=== PATIENT | male | born 1945 | race Caucasian/White ===

== ENCOUNTER 2022-11-09 10:12 | Outpatient (CLI) | payer MEDICARE, OTHER ==
[2022-11-09 11:15] VITALS: BP 110/76
--- NOTE | 2022-11-09 11:15 | SLEEP CARE CONSULTATION ---
Information from patient questionnaire entered by Brooke Amanda. I have reviewed and concur with the information entered by Brooke Amanda. This document represents the service I personally performed and the decisions made by me, Livia Warner ARNP. History of Present Illness Service Date and Time: 11/09/2022 1012 Reason for Visit: New patient, sleep apnea on CPAP therapy Chief Complaint: reports: Other (UPDATE SITUATION ) Date of Onset: 14 years Usual bedtime: 10PM Time it takes to fall asleep: VARIES Snores at night: No Observed to quit breathing while asleep: Yes Sleeps alone due to snoring: No Number of times waking at night: 1 Reasons for waking at night: reports: Bathroom Toss, Turn, or Twitch while sleeping: Yes Recalls having dreams: Yes Usually gets out of bed at: 5 AM Feels refreshed in the morning: No Morning headache: No Sleepy or fatigued during the day: Yes Ever fallen asleep while driving: No Takes day naps: No Prior sleep studies: Yes Year and Where: [place] 2018 Additional HPI information: CESARIO DELVALLE was previously diagnosed to have severe, AHI 34.4, obstructive sleep apnea-hypopnea syndrome with sleep study dated 05/05/2019 through [facility] in [place] and comes in today to establish care for CPAP therapy. - Parasomnia Symptoms Ever been unable to move upon waking from sleep: No Walks in sleep: No Talks in sleep: No Ever acted out dreams in sleep: No Ever felt weak in the knees when startled or emotional: No Bothered by creepy, crawly, restless sensations in legs: No Problems with memory or concentration: No CPAP Compliance Data - Data Reviewed with Patient Average duration of nightly device use: 8 hours 29 minutes Compliance rate %: 100 (30/30 days used) Current pressure setting (cmH2O): 12-16 Average residual AHI: 5.2 (5.1 with 90 day review) Central apnea: 1.7 Obstructive apnea: 1.2 Hypopnea: 2.1 Compliance data discussion: Patient has a Resmed Airsense 10 s/u 05/2019. He has gotten his supplies from [employer] in [place]. He is using a nasal cushion mask that goes over his nose, Resmed Mirage FX. He does have a back up mask. Subjective Patient concerns: reports: dry mouth, nose, throat (dry mouth). denies: aerophagia, mask discomfort, air blowing in eyes, mask leak noise, condensation in mask/hose, nasal congestion, epistaxis Observed to snore while using device: No Current pressure setting perceived as: comfortable On therapy, patient: reports: sleeping better, awakening more refreshed, being more awake and alert during the day, more rested overall. denies: drowsiness while driving Initial [place] Sleepiness Scale score: 3 (10/10/22) Past Medical History Past Medical History: reports: Arthritis, Impotence, Depression, Other (knee and back surgery) Social History The patient's occupation is a RE. Patient is and lives in . Have you smoked in the past 12 months: No Alcohol use: No Caffeine use: Yes Caffeine amount and frequency: 2 CUPS COFFEE PER DAY Family History Family history of sleep disordered breathing: No Allergies and Home Medications Known drug allergies: No Drug allergies reviewed: Yes Home medication list reviewed: Yes (see updated list in EMR) Review of Systems Weight gain over past 5 years: 20, 10 lbs in last 8 months Cardiovascular: denies: high blood pressure Respiratory: denies: shortness of breath Gastrointestinal: denies: heartburn Urinary: reports: frequency, urgency, impotence Neurological: denies: headaches Psychiatric: reports: depression. denies: Attention Deficit Hyperactivity, anxiety Ear/Nose/Throat: reports: wisdom teeth removed Endocrine: denies: thyroid disease Musculoskeletal: reports: joint pain, back pain Physical Exam Vital signs obtained and entered by: BROOKE Suazo MA Blood Pressure: 110/76 (LEFT ARM) Cuff size: regular Heart Rate: 75 O2 Saturation: 98 Height: 6 ft Weight: 247 lb 9.6 oz Body Mass Index: 33.5 BMI Classification: Obese Neck circumference: 18 Heart: regular rate and rhythm Lungs: clear bilaterally Impression and Plan 1. Obstructive Sleep Apnea-Hypopnea Syndrome, severe, with good treatment compliance and good apnea control. On CPAP therapy, the patient has better sleep quality and is more rested overall. Patient has relocated here since April 2022. He still gets his supplies from [facility] in [place] without any problems and would like to stay with them. He has significant improvement with minimal elevation of AHI at 5.1. He is satisfied with current pressure setting with good improvement of symptoms. I do not think a pressure change is needed at this time. I will update his supply prescription and follow up with him next year. Patient's apnea severity and rationale for treatment to reduce apnea, improve sleep quality and reduce cardiovascular and cerebrovascular events was reviewed. I also reviewed the benefit of consistent device use of CPAP for depression. 2. Obesity, unspecified. Currently patients BMI is 33.5. Obesity increases the risk of apnea, CPAP pressure requirements and overall health risks especially cardiovascular and diabetes. Thus patient is advised to continue to try to lose weight. * Continue auto CPAP pressure at 12-16 cmH2O * Update supplies * Notify me if snoring with mask or feeling that the pressure is too much or too little * Attempt to lose weight * Call this office if any problems using CPAP * Return for follow up in 1 year, or sooner if concerns arise Counseling Topics: Spare mask, Weight loss health impact Visit Type: In Office Time Spent with Patient (minutes): 30 Provider Statement: I spent 100% of the Face to Face Visit with the patient with greater than 50% spent counseling the patient and coordination of care.
== END 2022-11-09 10:13 | disposition home or self-care (01) ==
LOC: SC 10:12
PROVIDERS: ATTEND Nurse Practitioner Family
DX: G47.33 Obstructive sleep apnea (adult) (pediatric) (principal); E66.9 Obesity, unspecified; Z68.33 Body mass index [BMI] 33.0-33.9, adult
CPT/HCPCS: 99203; G0463; 99212

== ENCOUNTER 2022-12-04 07:05 | Outpatient (CLI) | payer MEDICARE, OTHER ==
[2022-12-04 07:45] LABS: BASOPHILS % (AUTO) 0.4 %; EOSINOPHILS # (AUTO) 0.1 10^3/uL (0.0-0.7); EOSINOPHILS % (AUTO) 2.1 %; HCT - HEMATOCRIT 49.4 % (42.0-52.0); HGB - HEMOGLOBIN 16.1 g/dL (14.0-18.0); LYMPHOCYTES # (AUTO) 1.6 10^3/uL (1.5-3.5); LYMPHOCYTES % (AUTO) 24.3 %; MEAN CORPUSCULAR HEMOGLOBIN 31.7 pg (27.0-31.0); MEAN CORPUSCULAR HGB CONC 32.6 g/dL (32.0-36.0); MEAN CORPUSCULAR VOLUME 97.2 fL (80.0-94.0); MEAN PLATELET VOLUME 9.4 fL (7.4-11.4); MONOCYTES # (AUTO) 0.7 10^3/uL (0.0-1.0); MONOCYTES % (AUTO) 10.3 %; NEUTROPHILS # (AUTO) 4.2 10^3/uL (1.5-6.6); NEUTROPHILS % (AUTO) 62.8 %; PLT - PLATELET COUNT 211 10^3/uL (130-450); RED BLOOD COUNT 5.08 10^6/uL (4.70-6.10); RED CELL DISTRIBUTION WIDTH 12.9 % (12.0-15.0); WHITE BLOOD COUNT 6.7 x10^3/uL (4.8-10.8)
[2022-12-04 08:00] LABS: ALBUMIN 4.5 g/dL (3.2-5.5); ALBUMIN/GLOBULIN RATIO 1.3 (1.0-2.2); ALKALINE PHOSPHATASE 99 IU/L (42-121); ALT ALANINE AMINOTRANSFERASE 25 IU/L (10-60); AST ASPARTATE AMINOTRANSFERASE 24 IU/L (10-42); BILIRUBIN,TOTAL 0.9 mg/dL (0.2-1.0); BUN - BLOOD UREA NITROGEN 21 mg/dL (6-20); CALCIUM 9.6 mg/dL (8.5-10.3); CARBON DIOXIDE - CO2 28 mmol/L (21-32); CHLORIDE 106 mmol/L (101-111); CHOLESTEROL 136 mg/dL; GFR - MDRD 72 (>89); GLUCOSE 98 mg/dL (70-100); HDL CHOLESTEROL 46 mg/dL; LDL CHOLESTEROL,CALCULATED 68 mg/dL; LDL/HDL RATIO 1.5 (<3.6); POTASSIUM 4.1 mmol/L (3.5-5.0); SODIUM 142 mmol/L (135-145); TRIGLYCERIDES 108 mg/dL; VLDL CHOLESTEROL 22 mg/dL
[2022-12-04 08:11] LABS: THYROID STIMULATING HORMONE 3.17 uIU/mL (0.34-5.60)
--- NOTE | 2022-12-04 09:57 | XRAY Report ---
PROCEDURE: Shoulder 3 View RT INDICATIONS: RIGHT SHOULDER PAIN, LOW BACK PAIN,LEFT KNEE PAIN TECHNIQUE: 3 views of the shoulder were acquired. COMPARISON: None. FINDINGS: Bones: No fractures or dislocations. No suspicious bony lesions. Visualized ribs appear intact. Glenohumeral and acromioclavicular joint space narrowing with associated osteophytosis. Subchondral s clerosis and bone cysts about the glenohumeral joint space. Soft tissues: No suspicious soft tissue calcifications. IMPRESSION: Kellgren-Samson scale of osteoarthritis: Grade 3: moderate osteoarthritis of the glenohumeral joint . Reviewed by: Reynaldo Morales on 12/04/2022 9:56 AM PDT Approved by: Reynaldo Morales on 12/04/2022 9:56 AM PDT Station ID: [id number]
--- NOTE | 2022-12-04 10:00 | XRAY Report ---
PROCEDURE: Knee 4 View LT INDICATIONS: RIGHT SHOULDER PAIN, LOW BACK PAIN,LEFT KNEE PAIN TECHNIQUE: 4 views of the left knee(s) were acquired. COMPARISON: None. FINDINGS: Bones: No fractures or dislocations. No suspicious bony lesions. Moderate multiple osteophytes, d efinite narrowing of joint space, small pseudocystic areas with sclerotic ayala and possible deformit y of bone contour. This is tricompartmental. Soft tissues: Mild knee joint effusion. No suspicious soft tissue calcifications or masses. IMPRESSION: No acute bony abnormality. Small knee joint effusion. Tricompartmental Kellgren-Samson scale of osteoarthritis: Grade 3: moderate osteoarthritis. Reviewed by: Reynaldo Morales on 12/04/2022 9:59 AM PDT Approved by: Reynaldo Morales on 12/04/2022 9:59 AM PDT Station ID: [id number]
--- NOTE | 2022-12-04 10:43 | XRAY Report ---
PROCEDURE: Lumbar Spine 2 View INDICATIONS: RIGHT SHOULDER PAIN, LOW BACK PAIN,LEFT KNEE PAIN TECHNIQUE: 2 views of the lumbar spine were acquired. COMPARISON: None. FINDINGS: Bones: 5 [id number] vertebrae are present. Convex right scoliosis, Pride angle of 26 degrees. Mo derate to severe, multilevel degenerative disc disease and facet arthrosis. Grade 1 anterolisthesis o f L2 on L3. Soft tissues: Overlying bowel gas pattern is normal. No suspicious soft tissue calcifications. IMPRESSION: Convex right scoliosis, Pride angle of 26 degrees Moderate to severe, multilevel degenerative disc disease and facet arthrosis. Reviewed by: Reynaldo Morales on 12/04/2022 10:41 AM PDT Approved by: Reynaldo Morales on 12/04/2022 10:41 AM PDT Station ID: [id number]
== END 2022-12-04 07:06 | disposition home or self-care (01) ==
LOC: DI 07:05
PROVIDERS: ATTEND Nurse Practitioner
DX: M19.011 Primary osteoarthritis, right shoulder (principal); M17.12 Unilateral primary osteoarthritis, left knee; M25.462 Effusion, left knee; M47.816 Spondylosis without myelopathy or radiculopathy, lumbar region; M51.36 Other intervertebral disc degeneration, lumbar region; M41.9 Scoliosis, unspecified; I10 Essential (primary) hypertension; E78.5 Hyperlipidemia, unspecified; E29.1 Testicular hypofunction; F41.8 Other specified anxiety disorders
CPT/HCPCS: 36415; 80053; 80061; 83721; 84403; 84443; 85025

== ENCOUNTER 2023-01-16 16:30 | Outpatient (CLI) | payer MEDICARE, OTHER | END 2023-01-16 16:45 | disposition home or self-care (01) | LOC: LAB.N 16:30 | PROVIDERS: ATTEND Physician Assistant | DX: N39.0 Urinary tract infection, site not specified (principal) | CPT/HCPCS: 87077; 87086; 87181 ==

== ENCOUNTER 2023-12-22 08:00 | Outpatient (CLI) | payer MEDICARE, OTHER | END 2023-12-22 23:54 | disposition home or self-care (01) | LOC: LAB.N 08:00 | PROVIDERS: ATTEND Physician Assistant Medical | DX: N39.0 Urinary tract infection, site not specified (principal) | CPT/HCPCS: 87077; 87086; 87181 ==